=== PATIENT | male | born 1960 | race Caucasian/White ===

== ENCOUNTER → 2018-02-23 | Outpatient (CLI) | payer BC ==
--- NOTE | 2018-02-23 17:11 | Diagnostic Imaging Report ---
INDICATION: 20 pack year history of smoking. COMPARISON: None. TECHNIQUE: Routine low-dose noncontrast CT of the chest was performed per screening protocol. FINDINGS: Evaluation of the lung thorpe demonstrates no focal consolidation, large effusion, nor pneumothorax. There is a small 4 mm subpleural micronodule within the lateral margins of the left lower lobe (image 191, series 4). Punctate juxtapleural 3 mm micronodule is also seen within the medial margins of the right upper lobe (image 86, series 4). No other suspicious pulmonary nodules or masses are identified. Cardiomediastinal structures show normal heart size. There is no large pericardial effusion. No pathologically enlarged or morphologically abnormal adenopathy is seen within the mediastinum, baldemar, nor axilla. Bony structures show no acute abnormalities. Included portions of the upper abdomen are unremarkable. IMPRESSION: 1. Small subcentimeter micronodules within the right upper and left lower lobes. No dominant nodule or mass. Continued followup with annual low dose CT chest is recommended. 2. No other acute cardiopulmonary process. LungRads category: 2. Dictated by: Dictated on workstation # [id number]
== END ==
LOC: RAD 15:49
PROVIDERS: ATTEND Family Medicine
DX: R91.8 Other nonspecific abnormal finding of lung field (principal); Z87.891 Personal history of nicotine dependence

== ENCOUNTER → 2021-06-07 | Outpatient (CLI) | payer BC ==
--- NOTE | 2021-06-07 16:15 | Diagnostic Imaging Report ---
EXAMINATION: CT chest without contrast (lung screening). TECHNIQUE: Multiple contiguous axial images were obtained through the chest without the use of intravenous contrast according to lung cancer screening protocol. All CT scans use one or more of the following dose optimizing techniques: automated exposure control, MA and/or KvP adjustment based on patient size and exam type or iterative reconstruction. HISTORY: 30 pack year history of smoking. COMPARISON: 02/23/2018 FINDINGS: There is no edema or pneumonia. No pleural effusion. No pneumothorax. No suspicious nodules. There is no axillary or supraclavicular lymphadenopathy. There is no mediastinal lymphadenopathy. Heart size is normal. There are no coronary artery calcifications. No pericardial effusion. Aorta is normal in caliber. Limited views of the upper abdomen show a cyst in the dome of the liver. There are no suspicious osseus lesions. IMPRESSION: 1. No suspicious pulmonary nodules. LUNG-RADS CATEGORY: 1 MODIFIER: None. Dictated by: Dictated on workstation # [id number]
== END ==
LOC: RAD 15:45
PROVIDERS: ATTEND Nurse Practitioner Family
DX: Z12.2 Encounter for screening for malignant neoplasm of respiratory organs (principal); Z87.891 Personal history of nicotine dependence
CPT/HCPCS: 71271

== ENCOUNTER → 2021-06-12 | Outpatient (CLI) | payer BC ==
--- NOTE | 2021-06-12 08:32 | Diagnostic Imaging Report ---
PROCEDURE: US Hepatic (Liver). TECHNIQUE: Multiple real-time grayscale images were obtained over the right upper quadrant in various projections. INDICATION: Liver cyst. COMPARISON: CT of the chest from 06/07/2021. FINDINGS: The pancreas is partially obscured by bowel gas but the imaged portions appear normal. Imaged portions of the aorta and IVC appear normal. A small hypoechoic lesion is seen at the dome of the liver along the diaphragm measuring up to 2 cm in diameter. There is no internal flow acquired. This is most compatible with a cyst. No other hepatic lesions are identified. There is no biliary dilatation. The gallbladder wall is normal in thickness. No stones are seen. The main portal vein is hepatopetal. The common bile duct is not seen. Sonographic Yoder sign is negative. The right kidney measures 10 cm in length. There is no hydronephrosis. No masses are seen. IMPRESSION: 1. Hypoechoic structure at the dome of the right liver is consistent with a cyst. There is no internal blood flow. 2. No other abnormality is seen in the liver or gallbladder. Dictated by: Dictated on workstation # [id number]
== END ==
LOC: RAD 07:15
PROVIDERS: ATTEND Nurse Practitioner Family
DX: K76.89 Other specified diseases of liver (principal)
CPT/HCPCS: 76705

== ENCOUNTER → 2022-08-15 | Outpatient (CLI) | payer BC ==
--- NOTE | 2022-08-15 17:14 | Diagnostic Imaging Report ---
EXAMINATION: CT chest without contrast. TECHNIQUE: Multiple contiguous axial images were obtained through the chest without the use of intravenous contrast. All CT scans use one or more of the following dose optimizing techniques: Automated exposure control, MA and/or KvP adjustment based on patient size and exam type or iterative reconstruction. HISTORY: Pulmonary nodule follow-up. COMPARISON: 06/07/2021. FINDINGS: Thyroid: The thyroid is normal. Mediastinum: Heart size is normal without significant pericardial effusion. The aorta is normal in caliber. No suspicious lymphadenopathy. Lungs and airways: The lungs are clear without consolidation, pleural effusion, or pneumothorax. No suspicious pulmonary lesion. The airways are normal. Upper abdomen: The subphrenic structures are normal. Musculoskeletal: Degenerative changes of the spine without suspicious osseous lesion or compression fracture. IMPRESSION: 1. No suspicious pulmonary lesion. 2. No acute abnormality in the chest. Dictated by: Dictated on workstation # [id number]
== END ==
LOC: RAD 15:14
PROVIDERS: ATTEND Family Medicine Sports Medicine
DX: R91.8 Other nonspecific abnormal finding of lung field (principal)
CPT/HCPCS: 71250